=== PATIENT | female | born 1970 | race Caucasian/White ===

== ENCOUNTER → 2020-12-12 | Outpatient (CLI) | payer BC ==
--- NOTE | 2020-12-14 20:33 | CT ---
EXAMINATION TYPE: CT orbits wo/w con DATE OF EXAM: 12/12/2020 COMPARISON: None HISTORY: 50-year-old female H02.824, small lump under left eye. Cysts of left upper eyelid. TECHNIQUE: Contiguous axial scanning of the orbits performed without and with IV Contrast, patient in jected with 100 mL of Isovue 300. Coronal reconstructions performed. CT DLP: 647 mGycm Automated exposure control for dose reduction was used. FINDINGS: There is no abnormality of visualized intracranial structures. There is no evidence of fractures. Optic canals appear normal. Optic nerves are symmetrical bilaterally. There is no intraocular abnorm ality. Extraocular muscles are symmetrical bilaterally. There is no retrobulbar orbital mass. The optic chiasm has a normal appearance. The sella and cavernous sinuses are normal in appearance. The paranasal sinuses are clear. Reformatted images confirm above findings. IMPRESSION: NO DISCRETE PRESEPTAL ABNORMALITY IDENTIFIED BY CT. NO POSTSEPTAL ABNORMALITY SEEN.
== END | disposition home or self-care (01) ==
LOC: RADCTMAIN 15:19
PROVIDERS: ATTEND Ophthalmology
DX: H02.824 Cysts of left upper eyelid (principal)
CPT/HCPCS: 70482; Q9967